=== PATIENT | female | born 1975 | race Caucasian/White ===

== ENCOUNTER 2022-10-11 23:20 | Emergency (ER) | payer OTHER, SELFPAY ==
[2022-10-11 23:25] VITALS: BP 174/104; PULSE 114; RESP 16; TEMP 36.6; O2SAT 98
--- NOTE | 2022-10-12 00:36 | PC.NURSE ---
ERP placed a 7.5 rapid rhino in right nare. Patient tolerated well.
--- NOTE | 2022-10-12 01:28 | ED.GENADULT ---
HPI - General Adult General Chief complaint: Epistaxis Stated complaint: nose bleeding, non stop for 50 minutes Time Seen by Provider: 10/12/22 00:38 History of Present Illness HPI narrative: Patient 46-year-old female who presents the emergency department with chief complaint of nosebleed. Patient reports that she started using a new nose spray and now has had several episodes of bleeding from her right nostril. The patient reports she has been able to control it until this evening where it bled for over an hour. Patient states she not on blood thinners reports that she has had no problems with this before in the past but does report that she has history of nasal congestion patient denies trauma Related Data Home Medications Medication Instructions Recorded Confirmed albuterol sulfate 90 mcg/actuation inhalation 10/11/22 aerosol inhaler amlodipine 10 mg tablet mg 10/11/22 amlodipine 5 mg tablet mg 10/11/22 azelastine 137 mcg (0.1 %) nasal intranasal 10/11/22 spray aerosol doxycycline hyclate 100 mg tablet mg 10/11/22 losartan 100 mg tablet mg 10/11/22 Allergies Allergy/AdvReac Type Severity Reaction Status Date / Time Penicillins Allergy Severe SWELLING, Verified 10/11/22 23:46 01/09/18 PT REPORTS TODAY REACTION OF RASH clindamycin Allergy Intermediate ITCHING, Verified 10/11/22 23:46 01/09/18 TODAY REPORTS HIVES latex Allergy Intermediate Hives / Verified 10/11/22 23:46 Red Face vancomycin Allergy Intermediate HIVES Verified 10/11/22 23:46 pamabrom Allergy Mild THROAT Verified 10/11/22 23:46 SWELLING/BREATHING DIFFICULTY pyrilamine Allergy Mild THROAT Verified 10/11/22 23:46 SWELLING/BREATHING DIFFICULTY prednisone AdvReac Intermediate IRREGULAR Verified 10/11/22 23:46 HIGH HEART RATE PYRILAMINE MALEATE Allergy Intermediate THROAT Uncoded 10/11/22 23:46 SWELLING, BREATHING DIFFICULTY Review of Systems Review of Systems: A 10 system review of systems was completed on the patient and is negative except for what is stated in the HPI. Nursing and ancillary documentation was reviewed. Exam Narrative: GENERAL: Well-appearing, well-nourished, and in no acute distress. HEAD: Normocephalic, atraumatic. EYES: PERRLA and EOMI. ENT: Active blood in the right nostril no appreciable spot that can be cauterized clots present NECK: Supple. CHEST: Clear to auscultation. No respiratory distress. HEART: Regular rate and rhythm. No murmur heard. Normal peripheral pulses. ABDOMEN: Soft, nontender, nondistended, normal active bowel sounds. EXTREMITIES: Normal range of motion. No edema. SKIN: Warm, dry, no rash. NEURO: No focal deficits. Alert and oriented x3. PSYCH: Normal mood and affect. Course Vital Signs Vital signs: Vital Signs Temperature 36.6 C 10/11/22 23:25 Pulse Rate 114 H 10/11/22 23:25 Respiratory Rate 16 10/11/22 23:25 Blood Pressure 174/104 H 10/11/22 23:25 Pulse Oximetry 98 10/11/22 23:25 Oxygen Delivery Room Air 10/11/22 23:25 Temperature 36.6 C 10/11/22 23:25 Pulse Rate 114 H 10/11/22 23:25 Respiratory Rate 16 10/11/22 23:25 Blood Pressure 174/104 H 10/11/22 23:25 Pulse Oximetry 98 10/11/22 23:25 Oxygen Delivery Room Air 10/11/22 23:25 Procedures Epistaxis Control right: Epistaxis Control Date: 10/12/22 Epistaxis Control Time: 01:30 Time Out Performed: Yes Nose Prepped With: oxymetazoline Direct Inspection: unable to visualize Clots Removed by: blowing nose Cautery Used: none Device Inserted: hemostatic balloon Device Size: 7 Medical Decision Making MDM Narrative Medical decision making narrative: Differential diagnosis includes traumatic epistaxis, The patient's bleeding was controlled in the emergency department with a rapid Rhino. The patient was observed and the patient will be
== END 2022-10-12 02:08 | disposition home or self-care (01) ==
PROVIDERS: Emergency Provider Emergency Medicine; PCP Nurse Practitioner Family
DX: R04.0 Epistaxis (principal); Z79.51 Long term (current) use of inhaled steroids
CPT/HCPCS: 30901; 99282; A9270